=== PATIENT | male | born 1995 | race Caucasian/White ===

== ENCOUNTER 2016-11-29 17:21 | Emergency (ER) | payer OTHER ==
--- NOTE | 2016-11-29 18:37 | DIAGNOSTIC IMAGING REPORT ---
PROCEDURE: XR CHEST 2 VIEW INDICATION: CHEST PAIN TECHNIQUE: PA and lateral views. COMPARISON: None. FINDINGS: Allowing for overlying wires and electrodes, lungs are clear, although hyperexpanded. Heart and mediastinum are normal. Thorax is normal. IMPRESSION: 1. Pulmonary hyperexpansion. List may be normal consider reactive airway disease (e.g., asthma). 2. Otherwise negative chest.
--- NOTE | 2016-11-29 19:59 | ED NURSING NOTES ---
Clinical Report - Nurses [facility] [address] [place] [address] 11/29/2016 17:21 Patient: LOGAN MARX TRIAGE Triage time 17:Nov 29 2016. Acuity: LEVEL 2. Chief Complaint: CHEST PAIN. Alert. No acute distress. --17:24 Carla Parrish R.N. 17:20 11/29/16. BP: 132/85. HR: 94. RR: 20. O2 saturation: 99%. Temp: 98.2 F. Pain level now: 12/01. --17:24 Carla Parrish R.N. Weight: 54.4 kg stated. Height/Length: 69 inches Per Patient. BMI: 17.7. --17:28 Carla Parrish R.N. Medications None. --17:21 Carla Parrish R.N. Allergies Amoxicillin. --17:21 Carla Parrish R.N. History Arrived by EMS. Historian: patient. Accompanied by family. This is a new problem. Symptoms are intermittent (about 2 hours). He has had mild difficulty breathing. PAST MEDICAL HX: Immunizations: up-to-date. SOCIAL HX: Heavy tobacco smoker (cigarette)- less than 1 pack per day. Occasional alcohol use. History of occasional drug use: methamphetamines. Recently used drugs today. No infectious disease exposure. SELF HARM ASSESSMENT: A self harm assessment was performed. The patient answered "no" to the question "Do you have thoughts of harming or killing yourself?". FALL RISK ASSESSMENT: Fall risk assessment completed. No fall risk identified. NUTRITIONAL RISK ASSESSMENT: The nutritional risk assessment revealed no deficiencies. FUNCTIONAL ASSESSMENT: Functional assessment: no impairments noted. LEARNING NEEDS ASSESSMENT: The learning needs assessment revealed no barriers. ABUSE ASSESSMENT: Abuse assessment: The patient was asked "Do you feel safe in your home?". SKIN INTEGRITY ASSESSMENT: Skin integrity risk assessment completed. No skin integrity risk identified. --17:24 Carla Parrish R.N. Interventions ID band on patient. --17:24 Carla Parrish R.N. PHYSICAL ASSESSMENT To room via stretcher. GENERAL / NEURO / PSYCH: Alert. Oriented X 4. Appears in pain. ( blurry vision dizzy). RESPIRATORY: Respirations not labored. CVS: Capillary refill less than 2 seconds. GI / : Abdomen soft and nontender. EXTREMITIES: No lower extremity edema. SKIN: Skin is warm and dry. --17:25 Carla Parrish R.N. NURSING PROGRESS NOTES quality assurance monitor final, pulse oximeter and NIBP monitor placed on patient; monitor technician- Lead II; monitor alarms on. Patient gowned. Head of bed elevated. Patient identifiers checked. Call light placed in reach. Side rails up x 2. Bed placed in lowest position. Brakes of bed on. Patient ready for evaluation- chart flagged. --17:26 Carla Parrish R.N. EKG time: (17:48). EKG was performed by a tech and shown to the ED physician. --17:51 Cristy Armenta 17:51 11/29/2016 Site #1 started prior to arrival by EMS via IV in the right antecubital space with an 20g angiocath. --17:51 Carla Parrish R.N. 18:46 11/29/16. BP: 138/79. HR: 97. RR: 12. O2 saturation: 97%. Pain level now: 10/31. --18:47 Carla Parrish R.N. The patient is calm and resting quietly. Overall patient status- he states feels better. SKIN: Skin is warm and dry. --18:47 Carla Parrish R.N. DISPOSITION / DISCHARGE 19:45 11/29/16. BP: 137/80. HR: 91. RR: 20. O2 saturation: 94%. Pain level now: 10/03. --19:49 Carla Parrish R.N. Departure time: 20:Nov 29 2016. Condition at departure: improved. The following issues were addressed: pain control and comfort issues. No learning barriers present. Discharge instructions provided and reviewed with the patient. Reviewed referral to a primary care physician. Patient verbalized understanding. Written instructions provided in [place]. The patient was discharged home and accompanied by parent. He left the Emergency Department ambulatory and via private vehicle. Parent driving. FALL RISK ASSESSMENT: Fall risk assessment completed. No fall risk identified. --20:08 Carla Parrish R.N. Locked/Released at 11/29/2016 22:46 by Carla Parrish R.N.
--- NOTE | 2016-11-29 19:59 | ED CLINICAL REPORT ---
Clinical Report - Physicians/Mid Levels [facility] [address] [place] [address] 11/29/2016 17:21 Patient: LOGAN MARX Time Seen: 17:29 Nov 29 2016. Arrived- By ambulance. Historian- EMS personnel. CPT: ER phys charges level 4 plus (#[id number]). EKG interpretation (#[id number]). HISTORY OF PRESENT ILLNESS Chief Complaint: CHEST PAIN. It is described as sharp, "pain" and well localized and it is described as located in the left chest area and other area. At its maximum, severity described as moderate. When seen in the E.D., severity described as moderate. Modifying factors- worsened by movement. Relieved by rest. This started today 1 PM and is still present but is better now. Onset during light activity; Right after doing methamphetamines. No nausea, vomiting or diaphoresis. He has had difficulty breathing. Similar symptoms previously: None. Recent medical care: Not recently seen/assessed. REVIEW OF SYSTEMS No fever, chills, cough, pedal edema or calf pain. No fainting episodes, headache, sore throat, abdominal pain or black stools. No difficulty with urination, skin rash, enlarged lymph nodes or joint pain. All systems otherwise negative, except as recorded above. PAST HISTORY No history of heart disease, lung disease, renal disease, neurological disease or GI disease. No history of heart rhythm problems or pulmonary embolism. Medications: None. Allergies: Amoxicillin. SOCIAL HISTORY Heavy tobacco smoker (cigarette)- less than 1 pack per day. Occasional alcohol use. History of drug use: methamphetamines. ADDITIONAL NOTES The nursing notes have been reviewed. PHYSICAL EXAM Vital Signs: 11/29/2016 17:20 BP: 132/85. HR: 94. RR: 20. O2 saturation: 99%. Temp: 98.2 F. Pain level now: 4/10. Appearance: Alert. Anxious. Patient in mild distress. Eyes: Pupils equal, round and reactive to light. Eyes normal inspection. ENT: Ears normal. Nose normal. Pharynx normal. Neck: Normal inspection. Neck supple. CVS: Normal heart rate and rhythm. Heart sounds normal. Pulses normal. Respiratory: No respiratory distress. Chest pain reproducible with palpation of the costal cartilage and anterior chest wall, with movement of the trunk and left arm and with deep breathing. Breath sounds normal. Abdomen: Soft and nontender. Back: Normal external inspection. Skin: Skin warm. Normal skin color. No rash. Extremities: Extremities exhibit normal ROM. No lower extremity edema. Neuro: Oriented X 3. No motor deficit. No sensory deficit. Reflexes normal. LABS, X-RAYS, AND EKG EKG: No acute ischemia. Normal sinus rhythm. Normal P waves. Normal QRS complex. Normal axis. Normal ST and T waves. Prior EKG unavailable. The study has been interpreted contemporaneously. The study has been independently viewed by me. The EKG appears to be a good tracing. Laboratory Tests: UA-Culture if indicated: (ROBBIE: 11/29/2016 18:30) ( MsgRcvd 11/29/2016 18:58) Final results Test Result Flag Units (Reference) URINE COLOR YELLOW URINE APPEARANCE CLEAR URINE GLUCOSE NEGATIVE (NEGATIVE) URINE BILIRUBIN NEGATIVE (NEGATIVE) URINE KETONE NEGATIVE (NEGATIVE) URINE SPECIFIC GRAVITY 1.010 (1.010-1.030) URINE PH 6.5 (5.0-8.0) URINE PROTEIN NEGATIVE (NEGATIVE) URINE UROBILINOGEN 0.2 EU/dL (0.2-1.0) URINE NITRITE NEGATIVE (NEGATIVE) URINE BLOOD NEGATIVE (NEGATIVE) URINE LEUK ESTERASE NEGATIVE (NEGATIVE) URINE RBC NONE SEEN rbc/hpf (0-1) URINE WBC RARE wbc/hpf (0-1) URINE EPITHELIAL CELLS RARE EPI/hpf (0-5) URINE BACTERIA NONE SEEN (NONE SEEN) URINE COMMENT CULT NOT INDICATED URINE CULTURES ARE SET-UP BASED ON THE FOLLOWING CRITERIA:POSITIVE NITRITEPOSITIVE LEUKOCYTE ESTERASEGREATER THAN 10 WHITE BLOOD CELLSMODERATE (2+) OR GREATER BACTERIA CBC w Diff: (ROBBIE: 11/29/2016 18:00) ( MsgRcvd 11/29/2016 18:06) Final results Test Result Flag Units (Reference) WHITE BLOOD COUNT 6.4 K/uL (4.5-11.5) RED BLOOD COUNT 5.01 M/uL (4.50-5.90) HEMOGLOBIN 15.5 gm/dL (13.5-17.5) HEMATOCRIT 45.7 % (41.0-53.0) MEAN CELL VOLUME 91 fL (80-100) MEAN CORPUSCULAR HGB 31 pg (26-34) MEAN CORPUSCULAR HGB CONC 34 g/dL (31-37) RED CELL DISTRIBUTION WIDTH 13.5 % (11.6-14.8) PLATELET COUNT 193 K/uL (150-400) NEUTROPHIL % 60.8 % (50-75) LYMPH % 33.6 % (25-40) MONO % 4.6 % (3-14) EOSINOPHIL % 0.6 % (0-4) BASOPHIL % 0.4 % (0-2) [id number]: (ROBBIE: 11/29/2016 18:00) ( MsgRcvd 11/29/2016 19:32) Final results Test Result Flag Units (Reference) D-DIMER QUANTITATIVE < 0.27 L ug/mLFEU (0.27-0.52) The primary value of this quantitative assay relates toits negative predictive value (i.e. exclusion) of pulmonaryembolism/deep vein thrombosis/DIC.Elevated levels of d-dimer may also occur with:, age, cancer, inflammation, liver disease,post-op, infection, hematoma, coronary disease, peripheralarteriopathy, bleeding disorders and thrombolytic treatment.Results should be correlated with other clinical andradiological data.Testing Methodology: Latex Immunoassay Urine Drug Screen: (ROBBIE: 11/29/2016 18:30) ( MsgRcvd 11/29/2016 18:54) Final results Test Result Flag Units (Reference) AMPHETAMINE/METHAMPHETAMINE POSITIVE H (NEGATIVE) BARBITURATE NEGATIVE (NEGATIVE) BENZODIAZEPINE NEGATIVE (NEGATIVE) CANNABINOID NEGATIVE (NEGATIVE) COCAINE NEGATIVE (NEGATIVE) ECSTASY NEGATIVE (NEGATIVE) METHADONE NEGATIVE (NEGATIVE) OPIATE NEGATIVE (NEGATIVE) The urine drug screen is a qualitative screening test fordrug overdose and abuse. All screen results should beconsidered as presumptive.Drugs screened for are as follows:BenzodiazepinesCocaineAmphetamines/MetamphetaminesTHC (Tetrahydrocannabinol)OpiatesBarbituratesEcstasyMethadonePositive results are unconfirmed. For confirmation, notifythe lab for the specimen to be sent to the reference lab.All confirmations must be performed by a differentmethodology.The ingestion of natural herbal and plant productscontaining Ephedra/Ephedra metabolites can produce in urineone or more substances capable of cross reacting withamphetamine/methamphetamine immunoassays. These testsprovide a preliminary result only. A more specificalternative chemical method must be used to obtain aconfirmed analytical result. BNP: (ROBBIE: 11/29/2016 18:00) ( [facility] 11/29/2016 18:41) Final results Test Result Flag Units (Reference) B-TYPE NATRIURETIC PEPTIDE < 5.0 L pg/ml (5-100) CHEM 13 PANEL: (ROBBIE: 11/29/2016 18:00) ( [facility] 11/29/2016 18:54) Final results Test Result Flag Units (Reference) GLUCOSE 100 mg/dL (70-110) BUN 11 mg/dL (7-18) CREATININE 0.9 mg/dL (0.6-1.3) Estimated GFR >60 mL/min Estimated GFR- >60 mL/min Note: Persistent reduction over 3 months in eGFR<60 mL/min/1.73 m2 defines CKD. Patients with eGFR values>=60 mL/min/1.73 m2 may also have CKD if evidence ofpersistent proteinuria. Additional information may be foundat www.kidney.org. SODIUM 139 mmol/L (136-145) POTASSIUM 3.9 mmol/L (3.5-5.1) CHLORIDE 101 mmol/L (98-107) CARBON DIOXIDE 29 mmol/L (21-32) CALCIUM 9.8 mg/dL (8.5-10.1) TOTAL PROTEIN 8.3 H g/dL (6.4-8.2) ALBUMIN 4.5 g/dL (3.3-5.0) BILIRUBIN, TOTAL 0.7 mg/dL (0.0-1.0) ALKALINE PHOSPHATASE 78 U/L (46-116) AST (SGOT) 28 U/L (15-37) ALT (SGPT) 39 U/L (12-78) MAGNESIUM 2.1 mg/dL (1.8-2.4) CPK 333 H U/L (24-260) CK-MB 2.1 ng/mL (0.5-3.2) %CKMB 0.6 % (0.0-4.0) TROPONIN I <0.05 ng/mL (0.00-1.5) TROPONIN REFERENCE RANGE:<0.1 NEGATIVE0.1-1.5 INDETERMINANT>1.5 POSITIVE . PROGRESS AND PROCEDURES Course of Care: 20:00 11/29/16. Symptoms resolved. Does not want Father to know about meth. He is here asking what is going on. Patient/family counseled. Disposition: Discharged. Condition: stable and improved. CLINICAL IMPRESSION Atypical chest pain .12 lead EKG performed. INSTRUCTIONS Apply moist heat for 15-20 minutes three times a day for one weeks until better. No strenuous activity. Rest. Avoid stimulants (such as cigarettes, coffee, cold medicines, sinus medicines, street drugs). Warnings: Further evaluation is necessary. GENERAL WARNINGS: Return or contact your physician immediately if your condition worsens or changes unexpectedly, if not improving as expected, or if other problems arise. Prescription Medications: Ibuprofen 600mg tablets: take 1 tablet orally every 8 hours as needed for pain. Dispense thirty (30). No refills. Follow-up: Follow up with your doctor. Understanding of the discharge instructions verbalized by patient and parent. Follow-up with: Selena Christensen, [facility], , [place] [phone] Follow up in one week. Call for an appointment. (Electronically signed by Darrell Almanza MD 11/30/2016 12:49)
--- NOTE | 2016-11-29 19:59 | ED CLINICAL REPORT ---
Clinical Report - Physicians/Mid Levels [facility] [address] [place] [address] 11/29/2016 17:21 Patient: LOGAN MARX Time Seen: 17:29 Nov 29 2016. Arrived- By ambulance. Historian- EMS personnel. CPT: ER phys charges level 4 plus (#[id number]). EKG interpretation (#[id number]). HISTORY OF PRESENT ILLNESS Chief Complaint: CHEST PAIN. It is described as sharp, "pain" and well localized and it is described as located in the left chest area and other area. At its maximum, severity described as moderate. When seen in the E.D., severity described as moderate. Modifying factors- worsened by movement. Relieved by rest. This started today 1 PM and is still present but is better now. Onset during light activity; Right after doing methamphetamines. No nausea, vomiting or diaphoresis. He has had difficulty breathing. Similar symptoms previously: None. Recent medical care: Not recently seen/assessed. REVIEW OF SYSTEMS No fever, chills, cough, pedal edema or calf pain. No fainting episodes, headache, sore throat, abdominal pain or black stools. No difficulty with urination, skin rash, enlarged lymph nodes or joint pain. All systems otherwise negative, except as recorded above. PAST HISTORY No history of heart disease, lung disease, renal disease, neurological disease or GI disease. No history of heart rhythm problems or pulmonary embolism. Medications: None. Allergies: Amoxicillin. SOCIAL HISTORY Heavy tobacco smoker (cigarette)- less than 1 pack per day. Occasional alcohol use. History of drug use: methamphetamines. ADDITIONAL NOTES The nursing notes have been reviewed. PHYSICAL EXAM Vital Signs: 11/29/2016 17:20 BP: 132/85. HR: 94. RR: 20. O2 saturation: 99%. Temp: 98.2 F. Pain level now: 4/10. Appearance: Alert. Anxious. Patient in mild distress. Eyes: Pupils equal, round and reactive to light. Eyes normal inspection. ENT: Ears normal. Nose normal. Pharynx normal. Neck: Normal inspection. Neck supple. CVS: Normal heart rate and rhythm. Heart sounds normal. Pulses normal. Respiratory: No respiratory distress. Chest pain reproducible with palpation of the costal cartilage and anterior chest wall, with movement of the trunk and left arm and with deep breathing. Breath sounds normal. Abdomen: Soft and nontender. Back: Normal external inspection. Skin: Skin warm. Normal skin color. No rash. Extremities: Extremities exhibit normal ROM. No lower extremity edema. Neuro: Oriented X 3. No motor deficit. No sensory deficit. Reflexes normal. LABS, X-RAYS, AND EKG EKG: No acute ischemia. Normal sinus rhythm. Normal P waves. Normal QRS complex. Normal axis. Normal ST and T waves. Prior EKG unavailable. The study has been interpreted contemporaneously. The study has been independently viewed by me. The EKG appears to be a good tracing. Laboratory Tests: UA-Culture if indicated: (ROBBIE: 11/29/2016 18:30) ( MsgRcvd 11/29/2016 18:58) Final results Test Result Flag Units (Reference) URINE COLOR YELLOW URINE APPEARANCE CLEAR URINE GLUCOSE NEGATIVE (NEGATIVE) URINE BILIRUBIN NEGATIVE (NEGATIVE) URINE KETONE NEGATIVE (NEGATIVE) URINE SPECIFIC GRAVITY 1.010 (1.010-1.030) URINE PH 6.5 (5.0-8.0) URINE PROTEIN NEGATIVE (NEGATIVE) URINE UROBILINOGEN 0.2 EU/dL (0.2-1.0) URINE NITRITE NEGATIVE (NEGATIVE) URINE BLOOD NEGATIVE (NEGATIVE) URINE LEUK ESTERASE NEGATIVE (NEGATIVE) URINE RBC NONE SEEN rbc/hpf (0-1) URINE WBC RARE wbc/hpf (0-1) URINE EPITHELIAL CELLS RARE EPI/hpf (0-5) URINE BACTERIA NONE SEEN (NONE SEEN) URINE COMMENT CULT NOT INDICATED URINE CULTURES ARE SET-UP BASED ON THE FOLLOWING CRITERIA:POSITIVE NITRITEPOSITIVE LEUKOCYTE ESTERASEGREATER THAN 10 WHITE BLOOD CELLSMODERATE (2+) OR GREATER BACTERIA CBC w Diff: (ROBBIE: 11/29/2016 18:00) ( MsgRcvd 11/29/2016 18:06) Final results Test Result Flag Units (Reference) WHITE BLOOD COUNT 6.4 K/uL (4.5-11.5) RED BLOOD COUNT 5.01 M/uL (4.50-5.90) HEMOGLOBIN 15.5 gm/dL (13.5-17.5) HEMATOCRIT 45.7 % (41.0-53.0) MEAN CELL VOLUME 91 fL (80-100) MEAN CORPUSCULAR HGB 31 pg (26-34) MEAN CORPUSCULAR HGB CONC 34 g/dL (31-37) RED CELL DISTRIBUTION WIDTH 13.5 % (11.6-14.8) PLATELET COUNT 193 K/uL (150-400) NEUTROPHIL % 60.8 % (50-75) LYMPH % 33.6 % (25-40) MONO % 4.6 % (3-14) EOSINOPHIL % 0.6 % (0-4) BASOPHIL % 0.4 % (0-2) [id number]: (ROBBIE: 11/29/2016 18:00) ( MsgRcvd 11/29/2016 19:32) Final results Test Result Flag Units (Reference) D-DIMER QUANTITATIVE < 0.27 L ug/mLFEU (0.27-0.52) The primary value of this quantitative assay relates toits negative predictive value (i.e. exclusion) of pulmonaryembolism/deep vein thrombosis/DIC.Elevated levels of d-dimer may also occur with:, age, cancer, inflammation, liver disease,post-op, infection, hematoma, coronary disease, peripheralarteriopathy, bleeding disorders and thrombolytic treatment.Results should be correlated with other clinical andradiological data.Testing Methodology: Latex Immunoassay Urine Drug Screen: (ROBBIE: 11/29/2016 18:30) ( MsgRcvd 11/29/2016 18:54) Final results Test Result Flag Units (Reference) AMPHETAMINE/METHAMPHETAMINE POSITIVE H (NEGATIVE) BARBITURATE NEGATIVE (NEGATIVE) BENZODIAZEPINE NEGATIVE (NEGATIVE) CANNABINOID NEGATIVE (NEGATIVE) COCAINE NEGATIVE (NEGATIVE) ECSTASY NEGATIVE (NEGATIVE) METHADONE NEGATIVE (NEGATIVE) OPIATE NEGATIVE (NEGATIVE) The urine drug screen is a qualitative screening test fordrug overdose and abuse. All screen results should beconsidered as presumptive.Drugs screened for are as follows:BenzodiazepinesCocaineAmphetamines/MetamphetaminesTHC (Tetrahydrocannabinol)OpiatesBarbituratesEcstasyMethadonePositive results are unconfirmed. For confirmation, notifythe lab for the specimen to be sent to the reference lab.All confirmations must be performed by a differentmethodology.The ingestion of natural herbal and plant productscontaining Ephedra/Ephedra metabolites can produce in urineone or more substances capable of cross reacting withamphetamine/methamphetamine immunoassays. These testsprovide a preliminary result only. A more specificalternative chemical method must be used to obtain aconfirmed analytical result. BNP: (ROBBIE: 11/29/2016 18:00) ( [facility] 11/29/2016 18:41) Final results Test Result Flag Units (Reference) B-TYPE NATRIURETIC PEPTIDE < 5.0 L pg/ml (5-100) CHEM 13 PANEL: (ROBBIE: 11/29/2016 18:00) ( [facility] 11/29/2016 18:54) Final results Test Result Flag Units (Reference) GLUCOSE 100 mg/dL (70-110) BUN 11 mg/dL (7-18) CREATININE 0.9 mg/dL (0.6-1.3) Estimated GFR >60 mL/min Estimated GFR- >60 mL/min Note: Persistent reduction over 3 months in eGFR<60 mL/min/1.73 m2 defines CKD. Patients with eGFR values>=60 mL/min/1.73 m2 may also have CKD if evidence ofpersistent proteinuria. Additional information may be foundat www.kidney.org. SODIUM 139 mmol/L (136-145) POTASSIUM 3.9 mmol/L (3.5-5.1) CHLORIDE 101 mmol/L (98-107) CARBON DIOXIDE 29 mmol/L (21-32) CALCIUM 9.8 mg/dL (8.5-10.1) TOTAL PROTEIN 8.3 H g/dL (6.4-8.2) ALBUMIN 4.5 g/dL (3.3-5.0) BILIRUBIN, TOTAL 0.7 mg/dL (0.0-1.0) ALKALINE PHOSPHATASE 78 U/L (46-116) AST (SGOT) 28 U/L (15-37) ALT (SGPT) 39 U/L (12-78) MAGNESIUM 2.1 mg/dL (1.8-2.4) CPK 333 H U/L (24-260) CK-MB 2.1 ng/mL (0.5-3.2) %CKMB 0.6 % (0.0-4.0) TROPONIN I <0.05 ng/mL (0.00-1.5) TROPONIN REFERENCE RANGE:<0.1 NEGATIVE0.1-1.5 INDETERMINANT>1.5 POSITIVE . PROGRESS AND PROCEDURES Course of Care: 20:00 11/29/16. Symptoms resolved. Does not want Father to know about meth. He is here asking what is going on. Patient/family counseled. Disposition: Discharged. Condition: stable and improved. CLINICAL IMPRESSION Atypical chest pain .12 lead EKG performed. INSTRUCTIONS Apply moist heat for 15-20 minutes three times a day for one weeks until better. No strenuous activity. Rest. Avoid stimulants (such as cigarettes, coffee, cold medicines, sinus medicines, street drugs). Warnings: Further evaluation is necessary. GENERAL WARNINGS: Return or contact your physician immediately if your condition worsens or changes unexpectedly, if not improving as expected, or if other problems arise. Prescription Medications: Ibuprofen 600mg tablets: take 1 tablet orally every 8 hours as needed for pain. Dispense thirty (30). No refills. Follow-up: Follow up with your doctor. Understanding of the discharge instructions verbalized by patient and parent. Follow-up with: Selena Christensen, [facility], , [place] [phone] Follow up in one week. Call for an appointment. (Electronically signed by Darrell Almanza MD 11/30/2016 12:49)
--- NOTE | 2016-11-29 19:59 | ED ORDER SUMMARY ---
..... Patient: LOGAN MARX OrderSheet [facility] VisitID: [id number] [place] [address] 21y, M Registration Date/Time: 11/29/2016 ORDER SHEET Weight: 54.4 kg (stated) Allergies: Amoxicillin GENERAL ORDERS: Buffer Machine (Continuous) (17:39 11/29/2016 Ana VÁZQUEZ) (17:50 RKmickuga) Chest 2V Urgent (17:39 11/29/2016 Ana VÁZQUEZ) (Ack 17:50 Charlene) (17:51 KKnebel R.N.) Cardiac Panel Stat (17:39 11/29/2016 Ana VÁZQUEZ) (Ack 17:50 Charlene) (18:33 KKnebel R.N.) BNP Urgent (17:39 11/29/2016 Ana VÁZQUEZ) (Ack 17:50 Charlene) (18:33 KKnebel R.N.) Pulse oximeter (17:39 11/29/2016 Ana VÁZQUEZ) (17:44 KWilliams R.N.) EKG - ER Stat (17:39 11/29/2016 Ana VÁZQUEZ) (17:49 RKaruga) UA-Culture if indicated Urgent (17:39 11/29/2016 Ana VÁZQUEZ) (Ack 17:50 RKcecilia) (18:33 KKnebel R.N.) Urine Drug Screen Urgent (17:39 11/29/2016 Ana VÁZQUEZ) (Ack 17:50 Charlene) (18:33 KKnebel R.N.) D-Dimer Urgent (19:05 11/29/2016 Ana VÁZQUEZ) (Ack 19:09 Sebastianuga) (19:21 KKnebel R.N.) MEDICATION ORDERS: IV FLUIDS: IV Saline Lock (17:39 11/29/2016 Ana VÁZQUEZ) (17:51 KKnebel R.N.) ORDER SHEET NOTES: [Electronically signed by Carla Parrish R.N. (22:46 11/29/2016)] [Electronically signed by Darrell Almanza MD (12:49 11/30/2016)] [Electronically locked/signed by Carla Parrish R.N. (22:46 11/29/2016)]
--- NOTE | 2016-11-29 19:59 | ED NURSING NOTES ---
Clinical Report - Nurses [facility] [address] [place] [address] 11/29/2016 17:21 Patient: LOGAN MARX TRIAGE Triage time 17:Nov 29 2016. Acuity: LEVEL 2. Chief Complaint: CHEST PAIN. Alert. No acute distress. --17:24 Carla Parrish R.N. 17:20 11/29/16. BP: 132/85. HR: 94. RR: 20. O2 saturation: 99%. Temp: 98.2 F. Pain level now: 12/01. --17:24 Carla Parrish R.N. Weight: 54.4 kg stated. Height/Length: 69 inches Per Patient. BMI: 17.7. --17:28 Carla Parrish R.N. Medications None. --17:21 Carla Parrish R.N. Allergies Amoxicillin. --17:21 Carla Parrish R.N. History Arrived by EMS. Historian: patient. Accompanied by family. This is a new problem. Symptoms are intermittent (about 2 hours). He has had mild difficulty breathing. PAST MEDICAL HX: Immunizations: up-to-date. SOCIAL HX: Heavy tobacco smoker (cigarette)- less than 1 pack per day. Occasional alcohol use. History of occasional drug use: methamphetamines. Recently used drugs today. No infectious disease exposure. SELF HARM ASSESSMENT: A self harm assessment was performed. The patient answered "no" to the question "Do you have thoughts of harming or killing yourself?". FALL RISK ASSESSMENT: Fall risk assessment completed. No fall risk identified. NUTRITIONAL RISK ASSESSMENT: The nutritional risk assessment revealed no deficiencies. FUNCTIONAL ASSESSMENT: Functional assessment: no impairments noted. LEARNING NEEDS ASSESSMENT: The learning needs assessment revealed no barriers. ABUSE ASSESSMENT: Abuse assessment: The patient was asked "Do you feel safe in your home?". SKIN INTEGRITY ASSESSMENT: Skin integrity risk assessment completed. No skin integrity risk identified. --17:24 Carla Parrish R.N. Interventions ID band on patient. --17:24 Carla Parrish R.N. PHYSICAL ASSESSMENT To room via stretcher. GENERAL / NEURO / PSYCH: Alert. Oriented X 4. Appears in pain. ( blurry vision dizzy). RESPIRATORY: Respirations not labored. CVS: Capillary refill less than 2 seconds. GI / : Abdomen soft and nontender. EXTREMITIES: No lower extremity edema. SKIN: Skin is warm and dry. --17:25 Carla Parrish R.N. NURSING PROGRESS NOTES ekg monitor, pulse oximeter and NIBP monitor placed on patient; quality assurance monitor- Lead II; monitor alarms on. Patient gowned. Head of bed elevated. Patient identifiers checked. Call light placed in reach. Side rails up x 2. Bed placed in lowest position. Brakes of bed on. Patient ready for evaluation- chart flagged. --17:26 Carla Parrish R.N. EKG time: (17:48). EKG was performed by a tech and shown to the ED physician. --17:51 Cristy Armenta 17:51 11/29/2016 Site #1 started prior to arrival by EMS via IV in the right antecubital space with an 20g angiocath. --17:51 Carla Parrish R.N. 18:46 11/29/16. BP: 138/79. HR: 97. RR: 12. O2 saturation: 97%. Pain level now: 10/31. --18:47 Carla Parrish R.N. The patient is calm and resting quietly. Overall patient status- he states feels better. SKIN: Skin is warm and dry. --18:47 Carla Parrish R.N. DISPOSITION / DISCHARGE 19:45 11/29/16. BP: 137/80. HR: 91. RR: 20. O2 saturation: 94%. Pain level now: 10/03. --19:49 Carla Parrish R.N. Departure time: 20:Nov 29 2016. Condition at departure: improved. The following issues were addressed: pain control and comfort issues. No learning barriers present. Discharge instructions provided and reviewed with the patient. Reviewed referral to a primary care physician. Patient verbalized understanding. Written instructions provided in Congolese. The patient was discharged home and accompanied by parent. He left the Emergency Department ambulatory and via private vehicle. Parent driving. FALL RISK ASSESSMENT: Fall risk assessment completed. No fall risk identified. --20:08 Carla Parrish R.N. Locked/Released at 11/29/2016 22:46 by Carla Parrish R.N.
--- NOTE | 2016-11-29 19:59 | ED ORDER SUMMARY ---
..... Patient: LOGAN MARX OrderSheet [facility] VisitID: [id number] [place] [address] 21y, M Registration Date/Time: 11/29/2016 ORDER SHEET Weight: 54.4 kg (stated) Allergies: Amoxicillin GENERAL ORDERS: Data Analytics Specialist (Continuous) (17:39 11/29/2016 Ana VÁZQUEZ) (17:50 RKmickuga) Chest 2V Urgent (17:39 11/29/2016 Ana VÁZQUEZ) (Ack 17:50 Charlene) (17:51 KKnebel R.N.) Cardiac Panel Stat (17:39 11/29/2016 Ana VÁZQUEZ) (Ack 17:50 Charlene) (18:33 KKnebel R.N.) BNP Urgent (17:39 11/29/2016 Ana VÁZQUEZ) (Ack 17:50 Charlene) (18:33 KKnebel R.N.) Pulse oximeter (17:39 11/29/2016 Ana VÁZQUEZ) (17:44 KWilliams R.N.) EKG - ER Stat (17:39 11/29/2016 Ana VÁZQUEZ) (17:49 RKaruga) UA-Culture if indicated Urgent (17:39 11/29/2016 Ana VÁZQUEZ) (Ack 17:50 RKcecilia) (18:33 KKnebel R.N.) Urine Drug Screen Urgent (17:39 11/29/2016 Ana VÁZQUEZ) (Ack 17:50 Charlene) (18:33 KKnebel R.N.) D-Dimer Urgent (19:05 11/29/2016 Ana VÁZQUEZ) (Ack 19:09 Sebastianuga) (19:21 KKnebel R.N.) MEDICATION ORDERS: IV FLUIDS: IV Saline Lock (17:39 11/29/2016 Ana VÁZQUEZ) (17:51 KKnebel R.N.) ORDER SHEET NOTES: [Electronically signed by Carla Parrish R.N. (22:46 11/29/2016)] [Electronically signed by Darrell Almanza MD (12:49 11/30/2016)] [Electronically locked/signed by Carla Parrish R.N. (22:46 11/29/2016)]
--- NOTE | 2016-11-30 12:50 | ED MED RECONCILIATION SUMMARY ---
Patient: LOGAN MARX Medication Reconciliation Report [facility] VisitID: [id number] [address] [place] [address] 21y, M Registration Date/Time: 11/29/2016 Weight: 54.4 kg Height/Length: 69 in. BMI: 17.7 ALLERGIES: Amoxicillin The patient's Home Medications are listed below: NONE. The source(s) of the original Home Medication information: Not obtained. The following Medications were given to the patient in the Emergency Department: None. The following Medications were prescribed to the patient: Ibuprofen 600mg tablets: take 1 tablet orally every 8 hours as needed for pain. Dispense thirty (30). No refills. -- Darrell Almanza MD
--- NOTE | 2016-11-30 12:50 | ED DISCHARGE INSTRUCTIONS ---
Patient: LOGAN MARX General Instructions [facility] VisitID: [id number] [place] [address] 21y, M Registration Date/Time: 11/29/2016 Atypical chest pain .12 lead EKG performed. INSTRUCTIONS Apply moist heat for 15-20 minutes three times a day for one weeks until better. No strenuous activity. Rest. Avoid stimulants (such as cigarettes, coffee, cold medicines, sinus medicines, street drugs). Warnings: Further evaluation is necessary. GENERAL WARNINGS: Return or contact your physician immediately if your condition worsens or changes unexpectedly, if not improving as expected, or if other problems arise. Prescription Medications: Ibuprofen 600mg tablets: take 1 tablet orally every 8 hours as needed for pain. Dispense thirty (30). No refills. Follow-up: Follow up with your doctor. Understanding of the discharge instructions verbalized by patient and parent. Follow-up with: Selena Christensen, [facility], , [place] [address] Follow up in one week. Call for an appointment. ADDITIONAL INFORMATION Chest Pain, Noncardiac Based on your visit today, the exact cause of your chest pain is not certain. Your condition does not seem serious and your pain does not appear to be coming from your heart. However, sometimes the signs of a serious problem take more time to appear. Therefore, please watch for the warning signs listed below. Home Care: Rest today and avoid strenuous activity. Take any prescribed medicine as directed. Follow Up with your doctor or this facility as instructed or if you do not start to feel better within 24 hours. Get Prompt Medical Attention if any of the following occur: A change in the type of pain: if it feels different, becomes more severe, lasts longer, or begins to spread into your shoulder, arm, neck, jaw or back Shortness of breath or increased pain with breathing Cough with dark colored sputum (phlegm) or blood Weakness, dizziness, or fainting Fever of 100.4F (38C) or higher, or as directed by your healthcare provider Swelling, pain or redness in one leg You have been given the following additional information: Chest Pain, Noncardiac No strenuous activity. Rest. (Electronically signed by Darrell Almanza MD 11/30/2016 12:49)
--- NOTE | 2016-11-30 12:50 | ED MAR SUMMARY ---
..... Medication Administration Record [facility] [address] [place], [place] [id number] Patient: LOGAN MARX Visit ID: [id number] 21y, M Weight: 54.4 kg Height/Length: 69 in BMI: 17.7 ALLERGIES: Amoxicillin
--- NOTE | 2016-11-30 12:50 | ED MAR SUMMARY ---
..... Medication Administration Record [facility] [address] [place], [place] [id number] Patient: LOGAN MARX Visit ID: [id number] 21y, M Weight: 54.4 kg Height/Length: 69 in BMI: 17.7 ALLERGIES: Amoxicillin
--- NOTE | 2016-11-30 12:50 | ED DISCHARGE INSTRUCTIONS ---
Patient: LOGAN MARX General Instructions [facility] VisitID: [id number] [place] [address] 21y, M Registration Date/Time: 11/29/2016 Atypical chest pain .12 lead EKG performed. INSTRUCTIONS Apply moist heat for 15-20 minutes three times a day for one weeks until better. No strenuous activity. Rest. Avoid stimulants (such as cigarettes, coffee, cold medicines, sinus medicines, street drugs). Warnings: Further evaluation is necessary. GENERAL WARNINGS: Return or contact your physician immediately if your condition worsens or changes unexpectedly, if not improving as expected, or if other problems arise. Prescription Medications: Ibuprofen 600mg tablets: take 1 tablet orally every 8 hours as needed for pain. Dispense thirty (30). No refills. Follow-up: Follow up with your doctor. Understanding of the discharge instructions verbalized by patient and parent. Follow-up with: Selena Christensen, [facility], , [place] [address] Follow up in one week. Call for an appointment. ADDITIONAL INFORMATION Chest Pain, Noncardiac Based on your visit today, the exact cause of your chest pain is not certain. Your condition does not seem serious and your pain does not appear to be coming from your heart. However, sometimes the signs of a serious problem take more time to appear. Therefore, please watch for the warning signs listed below. Home Care: Rest today and avoid strenuous activity. Take any prescribed medicine as directed. Follow Up with your doctor or this facility as instructed or if you do not start to feel better within 24 hours. Get Prompt Medical Attention if any of the following occur: A change in the type of pain: if it feels different, becomes more severe, lasts longer, or begins to spread into your shoulder, arm, neck, jaw or back Shortness of breath or increased pain with breathing Cough with dark colored sputum (phlegm) or blood Weakness, dizziness, or fainting Fever of 100.4F (38C) or higher, or as directed by your healthcare provider Swelling, pain or redness in one leg You have been given the following additional information: Chest Pain, Noncardiac No strenuous activity. Rest. (Electronically signed by Darrell Almanza MD 11/30/2016 12:49)
--- NOTE | 2016-11-30 12:50 | ED MED RECONCILIATION SUMMARY ---
Patient: LOGAN MARX Medication Reconciliation Report [facility] VisitID: [id number] [address] [place] [address] 21y, M Registration Date/Time: 11/29/2016 Weight: 54.4 kg Height/Length: 69 in. BMI: 17.7 ALLERGIES: Amoxicillin The patient's Home Medications are listed below: NONE. The source(s) of the original Home Medication information: Not obtained. The following Medications were given to the patient in the Emergency Department: None. The following Medications were prescribed to the patient: Ibuprofen 600mg tablets: take 1 tablet orally every 8 hours as needed for pain. Dispense thirty (30). No refills. -- Darrell Almanza MD
== END 2016-11-29 20:41 | disposition home or self-care (01) ==
LOC: ED SRH 17:21
DX: R07.89 Other chest pain (principal); F17.210 Nicotine dependence, cigarettes, uncomplicated; Z88.0 Allergy status to penicillin
CPT/HCPCS: 90004; 90074; 90100; 90616; 90617; 91320; 91556; 92610; 92720; 92760; 92761; 92762; 92763; 92764; 92765; 92766; 92767; 95059

== ENCOUNTER 2017-01-09 22:01 | Emergency (ER) | payer OTHER ==
--- NOTE | 2017-01-09 23:32 | ED NURSING NOTES ---
Clinical Report - Nurses [facility] [place] [address] 01/09/2017 22:03 Patient: LOGAN MARX TRIAGE Triage time 22:Jan 09 2017. Acuity: LEVEL 3. Chief Complaint: CHEST PAIN. SEPSIS SCREEN: Sepsis Screen: negative. Negative (no infection suspected/documented). FINESSE COMA SCORE: [place] Coma Scale: 10- eyes open spontaneously (4); best motor response- obeys commands (6). --22:07 Trinh Toth 22:04 01/09/17. BP: 134/93. HR: 89. RR: 20. O2 saturation: 99% on room air. Temp: 98.2 F (oral). Pain level now: 5/10. --22:07 Trinh Toth. Weight: 63.5 kg stated. Height/Length: 69 inches Per Patient. BMI: 20.7. --22:05 Trinh Toth. Medications None. --22:06 Trinh Toth. Medication/allergy information source: the patient. --22:07 Trinh Toth. Allergies Amoxicillin. --22:06 Trinh Toth. History Arrived by private vehicle. Historian: patient. Unaccompanied. This started just prior to arrival. ( Patient reports two hours ago he began having chest pain. He reports jaw pain. He reports he was here recently for his heart and they told him he exerted himself too much. He reports heavy caffeine consumption today. He reports some shortness of breath.). PAST MEDICAL HX: Immunizations: up-to-date. SOCIAL HX: Current every day light tobacco smoker (cigarette)- less than 1/2 a pack per day. No alcohol use or drug use. No infectious disease exposure. ABUSE ASSESSMENT: No report of abuse. FALL RISK ASSESSMENT: Fall risk assessment completed. No fall risk identified. NUTRITIONAL RISK ASSESSMENT: The nutritional risk assessment revealed no deficiencies. FUNCTIONAL ASSESSMENT: Functional assessment: no impairments noted. LEARNING NEEDS ASSESSMENT: The learning needs assessment revealed no barriers. SKIN INTEGRITY ASSESSMENT: Skin integrity risk assessment completed. No skin integrity risk identified. --22:07 Trinh Toth. ADDITIONAL SURGERIES: no known surgeries. Interventions ID band on patient. To treatment room. --22: Trinh Toth. PHYSICAL ASSESSMENT Ambulatory to room. GENERAL / NEURO / PSYCH: Alert. Oriented X 4. Appears in pain. HEENT: Mucous membranes are pink. RESPIRATORY: Respirations not labored. CVS: Cardiac rhythm: sinus tachycardia; (99). GI / : Abdomen soft and nontender. EXTREMITIES: No lower extremity edema. SKIN: Skin is warm and dry. Skin is non-tender. --22:07 Trinh Toth. NURSING PROGRESS NOTES 22:01/09/2017 Site #1 started via IV in the right antecubital space with an 20g angiocath, with aseptic technique and good blood return; one attempt. Blood drawn: rainbow set. Labeled in the presence of the patient and sent to the lab. Saline lock flushed with 10 mL saline. --22: Trinh Toth 22:01/09/17. classroom monitor, pulse oximeter and NIBP monitor placed on patient; monitor alarms on. Patient gowned. Reassurance given to the patient. Two patient identifiers checked. Call light placed in reach. Side rails up x 1. Bed placed in lowest position. Brakes of bed on. Patient ready for evaluation- chart flagged and ED physician notified. --22: Trinh Toth Patient ID band checked for patient name and birthdate: patient confirmed. Blood samples drawn from the right antecubital space peripheral IV site with Vacutainer by nurse ; labeled in presence of the patient and sent to lab: rainbow set. Additional blood sent to lab. Line flushed with 10 mL normal saline post blood draw. --22:08 Trinh Toth EKG time: (2214 PM). EKG was ordered, performed by a tech and shown to the ED physician. --22:40 Aissatou Brunner 22:45 01/09/17. BP: 116/67. HR: 92. RR: 20. O2 saturation: 98% on room air. Pain level now: 10. --22:48 Trinh Toth ( Patient reports it hurts to breath and swallow). --22:48 Trinh Toth Patient ID band checked for patient name and birthdate: patient confirmed. Throat swab obtained for rapid strep; labeled in the presence of the patient and sent to lab. --22:53 Trinh Toth 23:14 01/09/2017 Site #1 removed. Catheter intact. Bandaid applied (removed as pt wants to go AMA). --23:14 Aliza Hensley ( Patient wants to go home now. Provider notified. Explained to patient reason for wait.). --23:17 Trinh Toth. DISPOSITION / DISCHARGE 23:45 01/09/17. Condition at departure: stable. The goals identified in the patient's plan of care were met. No learning barriers present. Discharge instructions provided and reviewed with the patient. Patient verbalized understanding. Written instructions provided in Azerbaijani. ( Follow up with PCP, establish PCP care through [facility]. Return if symptoms worsen. Rest and hydrate. Patient verbalized understanding and had no additional questions at this time.). The patient was discharged by the physician. He was discharged home and accompanied by rn prior authorization. He left the Emergency Department ambulatory and via private vehicle. Electronics Engineering Professor driving. FALL RISK ASSESSMENT: Fall risk assessment completed. No fall risk identified. --00:45 Trinh Toth 23:42 01/09/17. BP: 107/71. HR: 85. RR: 20. O2 saturation: 98% on room air. Temp: 98 F (oral). Pain level now: 10/31. --00:45 Trinh Toth. Locked/Released at 01/10/2017 0:46 by Trinh Toth,
--- NOTE | 2017-01-09 23:32 | ED CLINICAL REPORT ---
Clinical Report - Physicians/Mid Levels [facility] [address] [place] [address] 01/09/2017 22:03 Patient: LOGAN MARX Time Seen: 22:05. Arrived- By private vehicle. Historian- patient. HISTORY OF PRESENT ILLNESS Chief Complaint: CHEST PAIN. It is described as "pain". At its maximum, severity described as moderate. When seen in the E.D., severity described as moderate. This started 2 - 3 hours ago; Pain is located in upper central chest and lower neck and is still present. It was abrupt in onset. No nausea, vomiting, difficulty breathing or diaphoresis. (Swallowing painful for several days Not drug related this time. No history of valsalva). Similar symptoms previously: Once. ( Methamphetamines - CP and tachycardia). REVIEW OF SYSTEMS No fever, chills, sore throat, blurred vision or abdominal pain. No difficulty with urination. He has had a cough. PAST HISTORY PCP: None Ops: None Hosp: None Illness: Former methamphetamine abuse. SOCIAL HISTORY History of drug use. ADDITIONAL NOTES The nursing notes have been reviewed. PHYSICAL EXAM Vital Signs: 01/09/2017 23:42 BP: 107/71. HR: 85. RR: 20. O2 saturation: 98%. Temp: 98 F. Pain level now: 10/31. 01/09/2017 22:45 BP: 116/67. HR: 92. RR: 20. O2 saturation: 98%. Pain level now: 12/01. 01/09/2017 22:04 BP: 134/93. HR: 89. RR: 20. O2 saturation: 99%. Temp: 98.2 F. Pain level now: 12/31. Appearance: Alert. No acute distress. Eyes: Eyes normal inspection. No scleral icterus. ENT: Pharynx normal. (Normal speaking voice). Neck: No meningeal signs or lymphadenopathy. CVS: Normal heart rate and rhythm. Heart sounds normal. Respiratory: No respiratory distress. Breath sounds normal. Chest nontender. Abdomen: Soft and nontender. Bowel sounds normal. Skin: Skin warm. Normal skin color. No rash. Extremities: Extremities exhibit normal ROM. No lower extremity edema. Neuro: No alteration in mental status. LABS, X-RAYS, AND EKG EKG: Rate: 99. Normal QRS complex. Increased QRS voltage (normal for age) (and habitus - very thin). Normal axis. Normal ST and T waves. The study has been independently viewed by me. Laboratory Tests: Culture, Strep Screen: (ROBBIE: 01/09/2017 22:40) ( MsgRcvd 01/09/2017 23:18) Final results Test Result Flag Units (Reference) RAPID STREP SCREEN - THROAT DATE: 01/09/17 NEGATIVE SCREEN: RAPID STREP SCREEN NEGATIVE; CONFIRMATION TO FOLLOW . PROGRESS AND PROCEDURES Course of Care: Normal chest exam, 02 sat and EKG (given habitus). Mr. Marx refuses CXR as he thinks it is not necessary. The need is explained. He still declines. Informed refusal done. Given high risk behaviors he may have HIV, noreen esophagitis, TB all of which are beyond the scope of an ED evaluation especially when CXR is refused. He understands the need to establish PCP and evaluate the weight loss. Disposition: Discharged. Condition: stable. CLINICAL IMPRESSION Atypical chest pain Pharyngitis (PHARYNX PAIN CAUSE UNKNOWN). WEIGHT LOSS BY HISTORY. INSTRUCTIONS (I DO NOT KNOW WHY YOUR THROAT IS SORE THE COMBINATION OF PREVIOUS HIGH RISK BEHAVIOR AND WEIGHT LOSS MEAN YOU NEED A THOROUGH EVALUATION YOU DECIDED YOU DID NOT WANT A CHEST X-RAY WHICH WILL GREATLY LIMIT MY ABILITY TO DECIDE WHAT YOU HAVE. RECHECK IN ED IF WORSE). Follow-up: Follow up with doctor. Understanding of the discharge instructions verbalized by patient. Follow-up with: [facility], , , [address], , [place], [id number] Follow up. Reason for referral: ESTABLISH PRIMARY CARE. (Electronically signed by Luis Batista MD 01/12/2017 10:18)
--- NOTE | 2017-01-09 23:32 | ED NURSING NOTES ---
Clinical Report - Nurses [facility] [place] [address] 01/09/2017 22:03 Patient: LOGAN MARX TRIAGE Triage time 22:Jan 09 2017. Acuity: LEVEL 3. Chief Complaint: CHEST PAIN. SEPSIS SCREEN: Sepsis Screen: negative. Negative (no infection suspected/documented). FINESSE COMA SCORE: [place] Coma Scale: 10- eyes open spontaneously (4); best motor response- obeys commands (6). --22:07 Trinh Toth 22:04 01/09/17. BP: 134/93. HR: 89. RR: 20. O2 saturation: 99% on room air. Temp: 98.2 F (oral). Pain level now: 5/10. --22:07 Trinh Toth. Weight: 63.5 kg stated. Height/Length: 69 inches Per Patient. BMI: 20.7. --22:05 Trinh Toth. Medications None. --22:06 Trinh Toth. Medication/allergy information source: the patient. --22:07 Trinh Toth. Allergies Amoxicillin. --22:06 Trinh Toth. History Arrived by private vehicle. Historian: patient. Unaccompanied. This started just prior to arrival. ( Patient reports two hours ago he began having chest pain. He reports jaw pain. He reports he was here recently for his heart and they told him he exerted himself too much. He reports heavy caffeine consumption today. He reports some shortness of breath.). PAST MEDICAL HX: Immunizations: up-to-date. SOCIAL HX: Current every day light tobacco smoker (cigarette)- less than 1/2 a pack per day. No alcohol use or drug use. No infectious disease exposure. ABUSE ASSESSMENT: No report of abuse. FALL RISK ASSESSMENT: Fall risk assessment completed. No fall risk identified. NUTRITIONAL RISK ASSESSMENT: The nutritional risk assessment revealed no deficiencies. FUNCTIONAL ASSESSMENT: Functional assessment: no impairments noted. LEARNING NEEDS ASSESSMENT: The learning needs assessment revealed no barriers. SKIN INTEGRITY ASSESSMENT: Skin integrity risk assessment completed. No skin integrity risk identified. --22:07 Trinh Toth. ADDITIONAL SURGERIES: no known surgeries. Interventions ID band on patient. To treatment room. --22: Trinh Toth. PHYSICAL ASSESSMENT Ambulatory to room. GENERAL / NEURO / PSYCH: Alert. Oriented X 4. Appears in pain. HEENT: Mucous membranes are pink. RESPIRATORY: Respirations not labored. CVS: Cardiac rhythm: sinus tachycardia; (99). GI / : Abdomen soft and nontender. EXTREMITIES: No lower extremity edema. SKIN: Skin is warm and dry. Skin is non-tender. --22:07 Trinh Toth. NURSING PROGRESS NOTES 22:01/09/2017 Site #1 started via IV in the right antecubital space with an 20g angiocath, with aseptic technique and good blood return; one attempt. Blood drawn: rainbow set. Labeled in the presence of the patient and sent to the lab. Saline lock flushed with 10 mL saline. --22: Trinh Toth 22:01/09/17. equipment monitor phototypesetting, pulse oximeter and NIBP monitor placed on patient; monitor alarms on. Patient gowned. Reassurance given to the patient. Two patient identifiers checked. Call light placed in reach. Side rails up x 1. Bed placed in lowest position. Brakes of bed on. Patient ready for evaluation- chart flagged and ED physician notified. --22: Trinh Toth Patient ID band checked for patient name and birthdate: patient confirmed. Blood samples drawn from the right antecubital space peripheral IV site with Vacutainer by nurse ; labeled in presence of the patient and sent to lab: rainbow set. Additional blood sent to lab. Line flushed with 10 mL normal saline post blood draw. --22:08 Trinh Toth EKG time: (2214 PM). EKG was ordered, performed by a tech and shown to the ED physician. --22:40 Aissatou Brunner 22:45 01/09/17. BP: 116/67. HR: 92. RR: 20. O2 saturation: 98% on room air. Pain level now: 10. --22:48 Trinh Toth ( Patient reports it hurts to breath and swallow). --22:48 Trinh Toth Patient ID band checked for patient name and birthdate: patient confirmed. Throat swab obtained for rapid strep; labeled in the presence of the patient and sent to lab. --22:53 Trinh Toth 23:14 01/09/2017 Site #1 removed. Catheter intact. Bandaid applied (removed as pt wants to go AMA). --23:14 Aliza Hensley ( Patient wants to go home now. Provider notified. Explained to patient reason for wait.). --23:17 Trinh Toth. DISPOSITION / DISCHARGE 23:45 01/09/17. Condition at departure: stable. The goals identified in the patient's plan of care were met. No learning barriers present. Discharge instructions provided and reviewed with the patient. Patient verbalized understanding. Written instructions provided in [place]. ( Follow up with PCP, establish PCP care through [facility]. Return if symptoms worsen. Rest and hydrate. Patient verbalized understanding and had no additional questions at this time.). The patient was discharged by the physician. He was discharged home and accompanied by care technician. He left the Emergency Department ambulatory and via private vehicle. Electronics Processing Supervisor driving. FALL RISK ASSESSMENT: Fall risk assessment completed. No fall risk identified. --00:45 Trinh Toth 23:42 01/09/17. BP: 107/71. HR: 85. RR: 20. O2 saturation: 98% on room air. Temp: 98 F (oral). Pain level now: 10/31. --00:45 Trinh Toth. Locked/Released at 01/10/2017 0:46 by Trinh Toth,
--- NOTE | 2017-01-09 23:32 | ED CLINICAL REPORT ---
Clinical Report - Physicians/Mid Levels [facility] [address] [place] [address] 01/09/2017 22:03 Patient: LOGAN MARX Time Seen: 22:05. Arrived- By private vehicle. Historian- patient. HISTORY OF PRESENT ILLNESS Chief Complaint: CHEST PAIN. It is described as "pain". At its maximum, severity described as moderate. When seen in the E.D., severity described as moderate. This started 2 - 3 hours ago; Pain is located in upper central chest and lower neck and is still present. It was abrupt in onset. No nausea, vomiting, difficulty breathing or diaphoresis. (Swallowing painful for several days Not drug related this time. No history of valsalva). Similar symptoms previously: Once. ( Methamphetamines - CP and tachycardia). REVIEW OF SYSTEMS No fever, chills, sore throat, blurred vision or abdominal pain. No difficulty with urination. He has had a cough. PAST HISTORY PCP: None Ops: None Hosp: None Illness: Former methamphetamine abuse. SOCIAL HISTORY History of drug use. ADDITIONAL NOTES The nursing notes have been reviewed. PHYSICAL EXAM Vital Signs: 01/09/2017 23:42 BP: 107/71. HR: 85. RR: 20. O2 saturation: 98%. Temp: 98 F. Pain level now: 10/31. 01/09/2017 22:45 BP: 116/67. HR: 92. RR: 20. O2 saturation: 98%. Pain level now: 12/01. 01/09/2017 22:04 BP: 134/93. HR: 89. RR: 20. O2 saturation: 99%. Temp: 98.2 F. Pain level now: 12/31. Appearance: Alert. No acute distress. Eyes: Eyes normal inspection. No scleral icterus. ENT: Pharynx normal. (Normal speaking voice). Neck: No meningeal signs or lymphadenopathy. CVS: Normal heart rate and rhythm. Heart sounds normal. Respiratory: No respiratory distress. Breath sounds normal. Chest nontender. Abdomen: Soft and nontender. Bowel sounds normal. Skin: Skin warm. Normal skin color. No rash. Extremities: Extremities exhibit normal ROM. No lower extremity edema. Neuro: No alteration in mental status. LABS, X-RAYS, AND EKG EKG: Rate: 99. Normal QRS complex. Increased QRS voltage (normal for age) (and habitus - very thin). Normal axis. Normal ST and T waves. The study has been independently viewed by me. Laboratory Tests: Culture, Strep Screen: (ROBBIE: 01/09/2017 22:40) ( MsgRcvd 01/09/2017 23:18) Final results Test Result Flag Units (Reference) RAPID STREP SCREEN - THROAT DATE: 01/09/17 NEGATIVE SCREEN: RAPID STREP SCREEN NEGATIVE; CONFIRMATION TO FOLLOW . PROGRESS AND PROCEDURES Course of Care: Normal chest exam, 02 sat and EKG (given habitus). Mr. Marx refuses CXR as he thinks it is not necessary. The need is explained. He still declines. Informed refusal done. Given high risk behaviors he may have HIV, noreen esophagitis, TB all of which are beyond the scope of an ED evaluation especially when CXR is refused. He understands the need to establish PCP and evaluate the weight loss. Disposition: Discharged. Condition: stable. CLINICAL IMPRESSION Atypical chest pain Pharyngitis (PHARYNX PAIN CAUSE UNKNOWN). WEIGHT LOSS BY HISTORY. INSTRUCTIONS (I DO NOT KNOW WHY YOUR THROAT IS SORE THE COMBINATION OF PREVIOUS HIGH RISK BEHAVIOR AND WEIGHT LOSS MEAN YOU NEED A THOROUGH EVALUATION YOU DECIDED YOU DID NOT WANT A CHEST X-RAY WHICH WILL GREATLY LIMIT MY ABILITY TO DECIDE WHAT YOU HAVE. RECHECK IN ED IF WORSE). Follow-up: Follow up with doctor. Understanding of the discharge instructions verbalized by patient. Follow-up with: [facility], , , [address], , [place], [address] Follow up. Reason for referral: ESTABLISH PRIMARY CARE. (Electronically signed by Luis Batista MD 01/12/2017 10:18)
--- NOTE | 2017-01-09 23:33 | ED ORDER SUMMARY ---
..... Patient: LOGAN MARX OrderSheet [facility] VisitID: [id number] [address] [place] [address] 21y, M Registration Date/Time: 01/09/2017 ORDER SHEET Weight: 63.5 kg (stated) Allergies: Amoxicillin GENERAL ORDERS: Chest 2V Urgent (22:45 01/09/2017 Bettye VÁZQUEZ) (Ack 22:59 OSnell) (23:29 RFay) Culture, Strep Screen Urgent (22:46 01/09/2017 Bettye VÁZQUEZ) (Ack 22:49 HSoule) (22:51 OSnell) MEDICATION ORDERS: IV FLUIDS: ORDER SHEET NOTES: [Electronically signed by Trinh Toth (00:46 01/10/2017)] [Electronically signed by Luis Batista MD (10:18 01/12/2017)] [Electronically locked/signed by Trinh Toth (00:46 01/10/2017)]
--- NOTE | 2017-01-09 23:33 | ED ORDER SUMMARY ---
..... Patient: LOGAN MARX OrderSheet [facility] VisitID: [id number] [address] [place] [address] 21y, M Registration Date/Time: 01/09/2017 ORDER SHEET Weight: 63.5 kg (stated) Allergies: Amoxicillin GENERAL ORDERS: Chest 2V Urgent (22:45 01/09/2017 Bettye VÁZQUEZ) (Ack 22:59 OSnell) (23:29 RFay) Culture, Strep Screen Urgent (22:46 01/09/2017 Bettye VÁZQUEZ) (Ack 22:49 HSoule) (22:51 OSnell) MEDICATION ORDERS: IV FLUIDS: ORDER SHEET NOTES: [Electronically signed by Trinh Toth (00:46 01/10/2017)] [Electronically signed by Luis Batista MD (10:18 01/12/2017)] [Electronically locked/signed by Trinh Toth (00:46 01/10/2017)]
--- NOTE | 2017-01-12 10:18 | ED DISCHARGE INSTRUCTIONS ---
Patient: LOGAN MARX General Instructions [facility] VisitID: [id number] [address], [place] [address] 21y, M Registration Date/Time: 01/09/2017 Atypical chest pain Pharyngitis (PHARYNX PAIN CAUSE UNKNOWN). WEIGHT LOSS BY HISTORY. INSTRUCTIONS (I DO NOT KNOW WHY YOUR THROAT IS SORE THE COMBINATION OF PREVIOUS HIGH RISK BEHAVIOR AND WEIGHT LOSS MEAN YOU NEED A THOROUGH EVALUATION YOU DECIDED YOU DID NOT WANT A CHEST X-RAY WHICH WILL GREATLY LIMIT MY ABILITY TO DECIDE WHAT YOU HAVE. RECHECK IN ED IF WORSE). Follow-up: Follow up with doctor. Understanding of the discharge instructions verbalized by patient. Follow-up with: [facility], , , [address], [place], [address] Follow up. Reason for referral: ESTABLISH PRIMARY CARE. ADDITIONAL INFORMATION Chest Pain, Noncardiac Based on your visit today, the exact cause of your chest pain is not certain. Your condition does not seem serious and your pain does not appear to be coming from your heart. However, sometimes the signs of a serious problem take more time to appear. Therefore, please watch for the warning signs listed below. Home Care: Rest today and avoid strenuous activity. Take any prescribed medicine as directed. Follow Up with your doctor or this facility as instructed or if you do not start to feel better within 24 hours. Get Prompt Medical Attention if any of the following occur: A change in the type of pain: if it feels different, becomes more severe, lasts longer, or begins to spread into your shoulder, arm, neck, jaw or back Shortness of breath or increased pain with breathing Cough with dark colored sputum (phlegm) or blood Weakness, dizziness, or fainting Fever of 100.4F (38C) or higher, or as directed by your healthcare provider Swelling, pain or redness in one leg You have been given the following additional information: Chest Pain, Noncardiac (Electronically signed by Luis Batista MD 01/12/2017 10:18)
--- NOTE | 2017-01-12 10:18 | ED MAR SUMMARY ---
..... Medication Administration Record [facility] [address] [place], [place] [id number] Patient: LOGAN MARX Visit ID: [id number] 21y, M Weight: 63.5 kg Height/Length: 69 in BMI: 20.7 ALLERGIES: Amoxicillin
--- NOTE | 2017-01-12 10:18 | ED MED RECONCILIATION SUMMARY ---
Patient: LOGAN MARX Medication Reconciliation Report [facility] VisitID: [id number] [address] [place] [address] 21y, M Registration Date/Time: 01/09/2017 Weight: 63.5 kg Height/Length: 69 in. BMI: 20.7 ALLERGIES: Amoxicillin The patient's Home Medications are listed below: NONE. The source(s) of the original Home Medication information: patient The following Medications were given to the patient in the Emergency Department: None. The following Medications were prescribed to the patient: None.
--- NOTE | 2017-01-12 10:18 | ED DISCHARGE INSTRUCTIONS ---
Patient: LOGAN MARX General Instructions [facility] VisitID: [id number] [address], [place] [address] 21y, M Registration Date/Time: 01/09/2017 Atypical chest pain Pharyngitis (PHARYNX PAIN CAUSE UNKNOWN). WEIGHT LOSS BY HISTORY. INSTRUCTIONS (I DO NOT KNOW WHY YOUR THROAT IS SORE THE COMBINATION OF PREVIOUS HIGH RISK BEHAVIOR AND WEIGHT LOSS MEAN YOU NEED A THOROUGH EVALUATION YOU DECIDED YOU DID NOT WANT A CHEST X-RAY WHICH WILL GREATLY LIMIT MY ABILITY TO DECIDE WHAT YOU HAVE. RECHECK IN ED IF WORSE). Follow-up: Follow up with doctor. Understanding of the discharge instructions verbalized by patient. Follow-up with: [facility], , , [address], [place], [address] Follow up. Reason for referral: ESTABLISH PRIMARY CARE. ADDITIONAL INFORMATION Chest Pain, Noncardiac Based on your visit today, the exact cause of your chest pain is not certain. Your condition does not seem serious and your pain does not appear to be coming from your heart. However, sometimes the signs of a serious problem take more time to appear. Therefore, please watch for the warning signs listed below. Home Care: Rest today and avoid strenuous activity. Take any prescribed medicine as directed. Follow Up with your doctor or this facility as instructed or if you do not start to feel better within 24 hours. Get Prompt Medical Attention if any of the following occur: A change in the type of pain: if it feels different, becomes more severe, lasts longer, or begins to spread into your shoulder, arm, neck, jaw or back Shortness of breath or increased pain with breathing Cough with dark colored sputum (phlegm) or blood Weakness, dizziness, or fainting Fever of 100.4F (38C) or higher, or as directed by your healthcare provider Swelling, pain or redness in one leg You have been given the following additional information: Chest Pain, Noncardiac (Electronically signed by Luis Batista MD 01/12/2017 10:18)
--- NOTE | 2017-01-12 10:18 | ED MAR SUMMARY ---
..... Medication Administration Record [facility] [address] [place], [place] [id number] Patient: LOGAN MARX Visit ID: [id number] 21y, M Weight: 63.5 kg Height/Length: 69 in BMI: 20.7 ALLERGIES: Amoxicillin
--- NOTE | 2017-01-12 10:18 | ED MED RECONCILIATION SUMMARY ---
Patient: LOGAN MARX Medication Reconciliation Report [facility] VisitID: [id number] [address] [place] [address] 21y, M Registration Date/Time: 01/09/2017 Weight: 63.5 kg Height/Length: 69 in. BMI: 20.7 ALLERGIES: Amoxicillin The patient's Home Medications are listed below: NONE. The source(s) of the original Home Medication information: patient The following Medications were given to the patient in the Emergency Department: None. The following Medications were prescribed to the patient: None.
== END 2017-01-09 23:40 | disposition home or self-care (01) ==
LOC: ED SRH 22:01
DX: R07.89 Other chest pain (principal); J02.9 Acute pharyngitis, unspecified; R63.4 Abnormal weight loss; Z88.1 Allergy status to other antibiotic agents
CPT/HCPCS: 90154; 90159; 90627